=== PATIENT | female | born 1945 | race Caucasian/White ===

== ENCOUNTER → 2017-10-23 | Outpatient (CLI) | payer MEDICARE | END | disposition home or self-care (01) | LOC: ECHO 08:46 | DX: E11.9 Type 2 diabetes mellitus without complications (principal); I11.0 Hypertensive heart disease with heart failure; I50.9 Heart failure, unspecified; E66.9 Obesity, unspecified; R53.82 Chronic fatigue, unspecified | CPT/HCPCS: 93306 ==

== ENCOUNTER → 2020-12-04 | Outpatient (CLI) | payer MEDICARE ==
--- NOTE | 2020-12-04 12:23 | CARD ---
MR#: [id number] Date of Study: 12/04/2020 Ordering Physician: ANJELICA FRITZ, Referring Physician: ANJELICA FRITZ Tech: Nicolle Kim [facility] APPROVED REPORT EXAM: Two-dimensional and M-mode echocardiogram with Doppler and color Doppler. Other Information Quality : AverageHR: 75bpm Rhythm : NSR INDICATION RISK FACTORS Hypertension Obesity 2D DIMENSIONS RVDd2.9 (2.9-3.5cm)Left Atrium(2D)3.3 (1.6-4.0cm) IVSd0.9 (0.7-1.1cm)Aortic Root(2D)2.9 (2.0-3.7cm) LVDd4.3 (3.9-5.9cm)LVOT Diameter2.0 (1.8-2.4cm) PWd1.0 (0.7-1.1cm)LVDs2.9 (2.5-4.0cm) FS (%) 33.0 %SV51.3 ml Aortic Valve AoV Peak Rosas.198.8cm/sAoV VTI46.3cm AO Peak GR.15.8mmHgLVOT Peak Rosas.112.4cm/s AO Mean GR.8mmHgAVA (VMAX)1.69cm2 Mitral Valve MV E Weuvtien260.8cm/sMV DECEL [id number] MV A Dumvzviw832.4cm/sE/A Ratio1.0 Pulmonary Valve PV Peak Jqulmqmv563.7cm/s Tricuspid Valve TR P. Mdkhfulm637cx/sTR Peak Gr.41mmHg Pulmonary Vein S1 Csfntetg93.5cm/sD2 Urjmgucx71.9cm/s PVa [id number] LEFT VENTRICLE The left ventricle is normal size. There is normal left ventricular wall thickness. The left ventricu lar systolic function is normal and the ejection fraction is within normal range. LV estimated eject ion fraction 55-60%. There is normal LV segmental wall motion. The left ventricular diastolic functio n and filling is normal for age. RIGHT VENTRICLE The right ventricle is normal size. There is normal right ventricular wall thickness. The right ventr icular systolic function is normal. ATRIA The left atrium size is normal. The right atrium size is normal. The interatrial septum is intact wit h no evidence for an atrial septal defect or patent foramen ovale as noted on 2-D or Doppler imaging. AORTIC VALVE The aortic valve is normal in structure and function. Doppler and Color Flow revealed no significant aortic regurgitation. There is no significant aortic valvular stenosis. MITRAL VALVE The mitral valve is normal in structure and function. There is no evidence of mitral valve prolapse. There is no mitral valve stenosis. Doppler and Color-flow revealed mild mitral regurgitation. TRICUSPID VALVE The tricuspid valve is normal in structure and function. Doppler and Color Flow revealed mild tricusp id regurgitation. Estimated PAP 32 mmHg. There is no tricuspid valve stenosis. PULMONIC VALVE The pulmonary valve is normal in structure and function. Doppler and Color Flow revealed no pulmonic valvular regurgitation. GREAT VESSELS The aortic root is normal in size. The ascending aorta is normal in size. The IVC is normal in size a nd collapses >50% with inspiration. PERICARDIAL EFFUSION There is no evidence of significant pericardial effusion. Critical Notification Critical Value: No <Conclusion> The left ventricle is normal size. The left ventricular systolic function is normal and the ejection fraction is within normal range. LV estimated ejection fraction 55-60%. There is normal left ventricular wall thickness. Doppler and Color Flow revealed no significant aortic regurgitation. There is no significant aortic valvular stenosis. Doppler and Color-flow revealed mild mitral regurgitation. Doppler and Color Flow revealed mild tricuspid regurgitation. Estimated PAP 32 mmHg. Signed by : Dean Stephen MD Electronically Approved : 12/04/2020 12:22:32
== END ==
LOC: ECHO 07:50
PROVIDERS: ATTEND Internal Medicine
DX: I08.1 Rheumatic disorders of both mitral and tricuspid valves (principal)
CPT/HCPCS: 93306